=== PATIENT | male | born 1945 | race Caucasian/White ===

== ENCOUNTER 2020-02-01 12:30 | Outpatient (CLI) | payer MEDICARE, SELFPAY ==
--- NOTE | ~2020-02-01 | MR_ITS ---
EXAMINATION: MR cervical spine wo con DATE: 02/01/2020 14:32 INDICATION: Cervical disc disorder with myelopathy. TECHNIQUE: Magnetic resonance imaging (MRI) of the cervical spine was performed without intravenous c ontrast. Sequences included sagittal T2-weighted FSE, sagittal T2-weighted FS FSE, sagittal T1-weight ed FSE, axial MERGE, and axial T2-weighted FSE. COMPARISON: Cervical spine MRI 07/25/2018 FINDINGS: Bone alignment is normal. Vertebral body heights are normal. There are changes of anterior fusion procedure from C4 to C6 with healed interbody bone graft and anterior plate and screws. There is moderately decreased disc height at C3-C4 and C6-C7 and mildly decreased disc height at C7-T1. The re is increased T2-weighted signal intensity in the spinal cord bilaterally at C3-C4 and C4-C5 and on the left at C5-C6. There are laminectomies from C4 to C7. The following disc levels are specifically discussed: C2-C3: There is a central protrusion. There is no uncovertebral joint osteoarthritis. There is severe bilateral facet joint osteoarthritis. There is mild bilateral neural foraminal stenosis. There is mi ld central canal stenosis. C3-C4: The disc is bulging. There is severe bilateral uncovertebral joint osteoarthritis. There is se maninder right and moderate left facet joint osteoarthritis. There is hypertrophy of the ligamentum flavu m. There is severe bilateral neural foraminal stenosis. There is severe central canal stenosis with v entral and dorsal indentation of spinal cord. C4-C5: There is mild bilateral uncovertebral joint hypertrophy. There is no facet joint osteoarthriti s. There is moderate bilateral neural foraminal stenosis. There is mild central canal stenosis with p osterior decompression. C5-C6: There is severe right and moderate left uncovertebral joint hypertrophy. There is mild bilater al facet joint osteoarthritis. There is mild bilateral neural foraminal stenosis. There is mild centr al canal stenosis with posterior decompression. C6-C7: There is severe bilateral uncovertebral joint hypertrophy. There is no facet joint osteoarthri tis. There is moderate bilateral neural foraminal stenosis. There is mild central canal stenosis with posterior decompression. C7-T1: The disc is bulging. There is severe left uncovertebral joint osteoarthritis. There is mild bi lateral facet joint osteoarthritis. There is mild left neural foraminal stenosis. There is mild centr al canal stenosis. IMPRESSION: 1. Severe cervical spondylosis, stable from 07/25/2018. 2. Myelomalacia from C3-C4 through C5-C6. Reviewed, dictated and finalized at location A.
== END 2020-02-01 12:31 | disposition home or self-care (01) ==
PROVIDERS: PCP Internal Medicine Gastroenterology; Visit Provider Psychiatry & Neurology Neurology
DX: M50.00 Cervical disc disorder with myelopathy, unspecified cervical region (principal); M47.892 Other spondylosis, cervical region
CPT/HCPCS: 72141

== ENCOUNTER 2020-04-08 08:29 | Outpatient (CLI) | payer MEDICARE, SELFPAY ==
--- NOTE | 2020-04-08 11:00 | NEURO_ITS ---
Patient Number: [id number] Impression: # Complains of numbness and weakness of upper and lower extremities. 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 # Distal neuropathy more than proximal neuropathy in the upper extremities. # Significant neurogenic changes on needle/EMG exam. 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 Nerve Conduction Studies Anti Sensory Summary Table Stim Site NR Peak (ms) P-T Amp (?V) Site1 Site2 Delta-P (ms) Dist (cm) Dereck (m/s) Left Median Anti Sensory (2-3nd Digit) Wrist 4.4 30.7 Wrist 2-3nd Digit 4.4 14.0 32 Wrist 4.7 33.7 Wrist 2-3nd Digit 4.4 14.0 32 Right Median Anti Sensory (2-3nd Digit) Wrist 5.0 12.8 Wrist 2-3nd Digit 5.0 14.0 28 Wrist 5.2 23.0 Wrist 2-3nd Digit 5.0 14.0 28 Left Radial Anti Sensory (Base 1st Digit) NO RESPONSE Wrist NR Wrist Base 1st Digit 0.0 Right Radial Anti Sensory (Base 1st Digit) NO RESPONSE Wrist NR Wrist Base 1st Digit 0.0 Left Sup Fibular Anti Sensory (Ant Lat Mall) NO RESPONSE 14 cm NR 14 cm Ant Lat Mall 16.0 Right Sup Fibular Anti Sensory (Ant Lat Mall) NO RESPONSE 14 cm NR 14 cm Ant Lat Mall 16.0 Left Sural Anti Sensory (Lat Mall) NO RESPONSE Calf NR Calf Lat Mall 16.0 Right Sural Anti Sensory (Lat Mall) NO RESPONSE Calf NR Calf Lat Mall 16.0 Left Ulnar Anti Sensory (5th Digit) NO RESPONSE Wrist NR Wrist 5th Digit 14.0 Right Ulnar Anti Sensory (5th Digit) Wrist 3.7 2.8 Wrist 5th Digit 3.7 14.0 38 Motor Summary Table Stim Site NR Onset (ms) O-P Amp (mV) Site1 Site2 Delta-0 (ms) Dist (cm) Dereck (m/s) Left Median Motor (Abd Poll Brev) Wrist 5.5 2.6 Elbow Wrist 7.2 32.0 44 Elbow 12.7 0.2 Right Median Motor (Abd Poll Brev) Wrist 5.2 0.4 Elbow Wrist 7.1 30.0 42 Elbow 12.3 0.4 Left Peroneal Motor (Vastus Med) NO RESPONSE Ankle NR Popit NR Right Peroneal Motor (Vastus Med) NO RESPONSE Ankle NR Popit NR Left Tibial Motor (Abd Ann Brev) NO RESPONSE Ankle NR Knee NR Right Tibial Motor (Abd Ann Brev) NO RESPONSE Ankle NR Knee NR Left Ulnar Motor (Abd Dig Minimi) Wrist 4.5 2.2 A Elbow Wrist 7.2 31.0 43 A Elbow 11.7 1.2 Right Ulnar Motor (Abd Dig Minimi) Wrist 4.2 3.3 A Elbow Wrist 7.1 31.0 44 A Elbow 11.3 2.8 F Wave Studies NR F-Lat (ms) L-R F-Lat (ms) Left Median (Mrkrs) (Abd Poll Brev) 30.99 1.81 Right Median (Mrkrs) (Abd Poll Brev) 32.81 1.81 Left Peroneal (Mrkrs) (EDB) NO RESPONSE NR Right Peroneal (Mrkrs) (EDB) NO RESPONSE NR Left Tibial (Mrkrs) (Abd Hallucis) NO RESPONSE NR Right Tibial (Mrkrs) (Abd Hallucis) NO RESPONSE NR Left Ulnar (Mrkrs) (Abd Dig Min) 26.20 0.18 Right Ulnar (Mrkrs) (Abd Dig Min) 26.02 0.18 EMG Side Muscle Nerve Root Ins Act Fibs Amp Dur Recrt Comment Right 1stDorInt Ulnar C8-T1 Nml Nml Nml >12ms Reduced Right Ext Indicis Radial (Post Int) C7-8 Nml Nml Nml >12ms Reduced Right Ext Digitorum Radial
== END 2020-04-08 08:30 | disposition home or self-care (01) ==
PROVIDERS: PCP Internal Medicine Gastroenterology; Visit Provider Psychiatry & Neurology Neurology
DX: G62.9 Polyneuropathy, unspecified (principal)
CPT/HCPCS: 95886; 95913